=== PATIENT | female | born 1950 | race Caucasian/White ===

== ENCOUNTER 2018-12-13 11:30 | Outpatient (CLI) | payer MEDICARE, OTHER ==
[~2018-12-13] VITALS: Ht 147.3 cm; Wt 44.5 kg
[~2018-12-13 11:30] MED LIST: BROVANA15 MCG/2 M IH; DALIRESP500 MCG PO; IMODIUM 2MG CAPS2 MG PO; NEURONTIN300 MG/CAP PO; NORCO 325 MG-51 TAB PO; PRILOSEC 20MG20 MG PO; PROAIR HFA0.09 MG/AC IH; VANCOCIN H125 MG/CAP PO; VERAPAMIL240 MG/TAB PO; XANAX .25M0.25 MG/TA PO
[2018-12-13 11:57] VITALS: BP 164/80; PULSE 88; TEMP 98.4
[2018-12-13] MEDS ORDERED: INCRUSE EL62.5 MCG/A IH (12:28)
[2018-12-13 13:08] VITALS: BP 183/92; PULSE 93
--- NOTE | 2018-12-13 13:13 | NUR ---
ALL SEDATION MEDICATIONS WILL BE GIVEN DURING PROCEDURE WITH VERBAL ORDER FROM MD. SEE MERGE FRO ADMIN TIMES. SEE MERGE FOR MODERATE SEDATION ASSESSMENTS DURING AND AFTER CASE.
[2018-12-13 14:00] VITALS: BP 142/77; PULSE 74; TEMP 97.4
[2018-12-13 14:16] VITALS: BP 125/68; PULSE 70; TEMP 97.4
[2018-12-13 14:30] VITALS: BP 120/70; PULSE 71; TEMP 97.4
[2018-12-13 15:00] VITALS: BP 138/72; PULSE 78; TEMP 97.4
--- NOTE | 2018-12-13 15:04 | NUR ---
Ambulated to bathroom with steady gait. INT discontinued intact. Discharge instructions given.
--- NOTE | 2018-12-13 15:12 | NUR ---
Transferred to private car by quita
== END 2018-12-13 15:12 | disposition home or self-care (01) ==
LOC: COL.CAR 11:30
DX: S22.050A Wedge compression fracture of T5-T6 vertebra, initial encounter for closed fracture (principal); J44.9 Chronic obstructive pulmonary disease, unspecified; Z90.49 Acquired absence of other specified parts of digestive tract; Z88.5 Allergy status to narcotic agent; Z88.6 Allergy status to analgesic agent; Z88.8 Allergy status to other drugs, medicaments and biological substances; F17.210 Nicotine dependence, cigarettes, uncomplicated
CPT/HCPCS: C1713; J2250; J3010; J7120

== ENCOUNTER 2019-01-05 06:08 | Outpatient (CLI) | payer MEDICARE, OTHER ==
[2019-01-05] VITALS (12 sets, daily range): BP systolic 103–160; BP diastolic 71–97; PULSE 69–92
[~2019-01-05] VITALS: Ht 147.3 cm; Wt 33.5 kg
[~2019-01-05 06:08] MED LIST changes: +INCRUSE EL62.5 MCG/A IH
[2019-01-05] MEDS ORDERED: NORCO 325 MG-101 TAB PO (08:06)
--- NOTE | 2019-01-05 08:16 | NUR ---
ALL SEDATION MEDICATIONS WILL BE GIVEN DURING PROCEDURE WITH VERBAL ORDER FROM MD MCGUIRE. SEE MERGE FOR ADMIN TIMES. SEE MERGE FOR RASS AND MODERATE SEDATION ASSESSMENTS DURING AND POST PROCEDURE.
--- NOTE | 2019-01-05 10:09 | NUR ---
PT STATING PAIN IS A 7/10 IN HER BACK. STATES IT IS A DULL PAIN THAT TAKES "MY BREATH AWAY" AND IS BARELY TOLERABLE. RADIOLOGIST NOTIFIED AND MEDICATION ORDERED, SEE MAR. WILL CONTINUE TO MONITOR.
--- NOTE | 2019-01-05 11:09 | NUR ---
Pt appears to be in great discomfort. Pain 8/10 "if not more" and groaning. call placed to Dr.Welle ayala. Per md, can give one time dose of medication to see if this helps. See MAR.
--- NOTE | 2019-01-05 12:09 | NUR ---
Pt resting comfortably in bed. States pain is now a 0/10 in her back. Sipping on water. Notified Rad. Pt has her granddaughter as a log driver home. Ok to prepare for discharge.
--- NOTE | 2019-01-05 12:45 | NUR ---
PT VSS REMAINED [id number].PAIN CONTROLLED AFTER PAIN MEDICATION. SITE TO UPPER BACK IS C/D/I. DISCHARGE INSTRUCTIONS REVIEWED AND SIGNED. 22G REMOVED FROM LEFT AC. PT WHEELED OUT SAFELY WHERE GRANDDAUGHTER DROVE HER HOME.
== END 2019-01-05 12:45 | disposition home or self-care (01) ==
LOC: COL.CAR 06:08
DX: M48.54XA Collapsed vertebra, not elsewhere classified, thoracic region, initial encounter for fracture (principal); F17.210 Nicotine dependence, cigarettes, uncomplicated; Z90.49 Acquired absence of other specified parts of digestive tract; Z88.5 Allergy status to narcotic agent; Z88.1 Allergy status to other antibiotic agents; Z88.6 Allergy status to analgesic agent; Z88.8 Allergy status to other drugs, medicaments and biological substances; Z91.018 Allergy to other foods
CPT/HCPCS: C1713; J2175; J2250; J3010; J7120

== ENCOUNTER 2019-03-16 09:40 | Outpatient (CLI) | payer MEDICARE, OTHER ==
[2019-03-16] VITALS (9 sets, daily range): BP systolic 103–148; BP diastolic 64–87; PULSE 74–92; TEMP 8.2
[~2019-03-16 09:40] MED LIST changes: +NORCO 325 MG-101 TAB PO; -PROAIR HFA0.09 MG/AC IH; +PROVENTIL0.09 MG/A1 IH
[2019-03-16] MEDS ORDERED: MIRALAX PA17 GM/Dose PO (11:05)
[2019-03-16] MEDS ORDERED: NEURONTIN300 MG/CAP PO (11:08)
[2019-03-16] MEDS ORDERED: FOSAMAX 70MG TA70 MG PO (11:10)
[2019-03-16] MEDS ORDERED: SUPER CALCIUM W1 TA1 PO (11:11)
[2019-03-16] MEDS ORDERED: DOXYCYCLINE 10100 MG PO (11:12)
[2019-03-16] MEDS ORDERED: SENOKOT S 50 MG1 TAB PO (11:13)
--- NOTE | 2019-03-16 14:35 | NUR ---
Discharge instructions given to pt.pt and daughter verbalize understanding.INT removed,catheter tip intact.Dr Grissom checked on pt,ok to discharge home.Pt escorted out via wheelchair by this nurse.Pt has home oxygen at 4 l//min with activity.
== END 2019-03-16 15:04 | disposition home or self-care (01) ==
LOC: COL.CAR 09:40
DX: S22.060A Wedge compression fracture of T7-T8 vertebra, initial encounter for closed fracture (principal); J44.9 Chronic obstructive pulmonary disease, unspecified; F17.210 Nicotine dependence, cigarettes, uncomplicated; Z88.1 Allergy status to other antibiotic agents; Z88.5 Allergy status to narcotic agent; Z88.6 Allergy status to analgesic agent; Z88.8 Allergy status to other drugs, medicaments and biological substances; Z91.018 Allergy to other foods
CPT/HCPCS: C1713; J2250; J3010; J7120

== ENCOUNTER 2020-02-27 12:57 | Outpatient (CLI) | payer MEDICARE, OTHER, MEDICAID ==
[2020-02-27] VITALS (7 sets, daily range): BP systolic 139–168; BP diastolic 68–90; PULSE 80–98; TEMP 97.8
[~2020-02-27] VITALS: Ht 147.3 cm; Wt 42.0 kg
[~2020-02-27 12:57] MED LIST changes: +DOXYCYCLINE 10100 MG PO; +FOSAMAX 70MG TA70 MG PO; +LASIX 20MG TABL20 MG PO; +MIRALAX PA17 GM/Dose PO; +REMERON 15M15 MG/TA1 PO; +SALONPAS1 EACH TP; +SENOKOT S 50 MG1 TAB PO; +SUPER CALCIUM W1 TA1 PO; +ZOFRAN 4MG T4 MG/TAB PO
--- NOTE | 2020-02-27 14:22 | NUR ---
SEE MERGE DOCUMENTATION FOR MEDICATION ADMINISTRATION AND INTRA/POST PROCEDURE SEDATION ASSESSMENT.
--- NOTE | 2020-02-27 15:15 | NUR ---
pt returned from [employer] via cart, dozes, but when awake moans and states is hurting and cannot get comfortable, explained to pt she will need to lay flat for first hour, call light in reach, side rails up x2, lights dimmed dozes at this time
--- NOTE | 2020-02-27 15:30 | NUR ---
pt con't same, remains supine
--- NOTE | 2020-02-27 16:15 | NUR ---
PT SAT ON SIDE OF BED, STATES PAIN LEVEL WITH MOVEMENT IS A "10" STATES HAVING INCREASE SHORTNESS OF BREATH AND STATES "I DON'T THINK I CAN MAKE IT HOME WITHOUT MY TREATMENT" SATS AT 99% WITH 02, PT UP TO B/R TRANSFERS SELF BUT STATES HAVING INCREASE BACK PAIN, CON'T WITH 2 BANDAIDS TO UPPER BACK CLEAN AND DRY, DECLINES FOOD OR DRINK AT THIS TIME, STATES IS ANXIOUS TO TAKE HER MEDS AND XANAX WHEN SHE IS DISCHARGED.
--- NOTE | 2020-02-27 16:45 | NUR ---
REMAINS UP IN W/C FOR BEST COMFORT. 02 ON AT HOME 2L/MIN. REVIEWED DISCHARGE INST. WITH PT STATED WILL HAVE PAPERS FOR NURSING STAFF ALSO. 1654, PT BECOMING MORE ANXIOUS ABOUT TRAVEL HOME WITHOUT A BREATHING TREATMENT, DR MCGUIRE CALLED ORDER FOR DUONEB TREATMENT PT TAKES AT NURSING FACILITY ORDERED, RT HERE AT 1700, INT D'CD INTACT. PT DRESSED
--- NOTE | 2020-02-27 17:20 | NUR ---
PT STATES FEELS BETTER AND IS "BREATHING BETTER" AFTER TREATMENT, DISCHARGED VIA OWN W/C WITH 02 TO BRIGHT AND REPORT GIVEN TO HER
== END 2020-02-27 17:20 | disposition home or self-care (01) ==
LOC: COL.CAR 12:57
DX: M80.08XA Age-related osteoporosis with current pathological fracture, vertebra(e), initial encounter for fracture (principal); Z88.1 Allergy status to other antibiotic agents; Z88.5 Allergy status to narcotic agent; Z88.8 Allergy status to other drugs, medicaments and biological substances; Z88.6 Allergy status to analgesic agent; Z87.891 Personal history of nicotine dependence; Z90.89 Acquired absence of other organs
CPT/HCPCS: J2250; J3010